=== PATIENT | female | born 1950 | race African-American/Black ===

== ENCOUNTER 2025-04-07 11:41 | Emergency (ER) | payer OTHER ==
[~2025-04-07] VITALS: Ht 180.3 cm; Wt 77.0 kg
[2025-04-07 11:45] VITALS: O2SAT 100
[2025-04-07] MEDS: SODIUM CHLORIDE 0.9% 1,000 ML IV ONE (12:37)
[2025-04-07] MEDS: KETOROLAC 30MG/ML VIAL IV ONE (12:37)
[2025-04-07 12:45] LABS: BASOPHILS % 0.1 % (0.0-2.0); EOSINOPHILS % 0.1 % (0.0-5.0); HEMATOCRIT. 34.0 % (36.0-48.0); HEMOGLOBIN. 11.0 g/dL (12.0-16.0); LYMPHOCYTES % 28.0 % (20.0-50.0); MEAN PLATELET VOLUME 8.5 fl (7.4-10.4); MONOCYTES % 9.7 % (2.0-8.0); NEUTROPHILS % 62.1 % (40.0-76.0); PLATELET 229 x1000/uL (130-400); RED BLOOD CELL COUNT 3.95 mill/uL (4.2-5.4); RED CELL DISTRIBUTION WIDTH 15.9 % (11.6-14.6)
[2025-04-07 12:59] LABS: CREATININE 1.1 mg/dL (0.6-1.0)
[2025-04-07 13:00] LABS: TROPONIN I HIGH SENSITIVITY 4 ng/L (3.0-34); UREA NITROGEN BLOOD 16 mg/dL (9-23)
[2025-04-07] MEDS ORDERED: METH-653 MT (14:21)
[2025-04-07 14:35] VITALS: BP 158/87; PULSE 68; RESP 12; TEMP 36.8; O2SAT 100
== END 2025-04-07 14:51 | disposition home or self-care (01) ==
LOC: ER 11:41 → CMPBEDREQ 19:14
DX: R07.89 Other chest pain (principal); E11.9 Type 2 diabetes mellitus without complications; I10 Essential (primary) hypertension; Z55.6 Problems related to health literacy; Z96.653 Presence of artificial knee joint, bilateral
CPT/HCPCS: 99285; 96360; 71045; 80048; 83880; 85025; 84484; 36415; 93005; 96372; J1885; J7030